=== PATIENT | female | born 1975 | race Caucasian/White ===

== ENCOUNTER 2017-12-19 13:32 | Emergency (ER) | payer OTHER ==
[2017-12-19] MEDS: ALBUTEROL/IPRATROPIUM (NEB) 3 ML AMP HHN (16:33)
[2017-12-19] MEDS: KETOROLAC 15 MG INJ IM (17:47)
[2017-12-19 19:38] LABS: D-DIMER < 220.00 ng/ml (<460)
== END 2017-12-19 20:02 | disposition home or self-care (01) ==
LOC: FTE 13:32
DX: R05 Cough (principal); R07.1 Chest pain on breathing
CPT/HCPCS: 71046; 85378; 94664; 96372; 99284-25